=== PATIENT | female | born 1955 | race Caucasian/White ===

== ENCOUNTER 2020-01-23 08:42 | Emergency (ER) | payer SELFPAY ==
[2020-01-23] MEDS ORDERED: Ibuprofen 200 MG TAB ONE (09:11)
--- NOTE | 2020-01-24 07:31 | RAD ---
RIGHT WRIST 3 VIEWS:: Date: 01/23/2020 No fracture, bony destructive lesion, or severe arthritic change seen. An incidental finding is a sma ll opaque radiodensity just anterior to the radial styloid process. This may be a small foreign body, or from an old injury. I doubt it has anything to do with the current symptoms. IMPRESSION: No acute findings. POS: HOME
== END 2020-01-23 09:58 | disposition home or self-care (01) ==
LOC: BURERS 08:42
DX: M11.231 Other chondrocalcinosis, right wrist (principal)